=== PATIENT | male | born 1945 | race Caucasian/White ===

== ENCOUNTER 2021-11-18 07:55 | Day surgery (SDC) | payer MEDICARE, BC ==
[~2021-11-18] VITALS: Ht 177.8 cm; Wt 79.5 kg
[~2021-11-18 07:55] MED LIST: IBUP-1573 PO
[2021-11-18] MEDS ORDERED: fentaNYL/PF 50MCG/1 ML 2ML syringe ONE (08:07)
[2021-11-18] MEDS ORDERED: MIDAZolam 1 MG/ML 5ML VIAL ONE (08:08)
[2021-11-18] MEDS ORDERED: LIDOcaine Viscous 15ml cup ONE (08:08)
[2021-11-18] MEDS ORDERED: SIMV-45 PO (08:31)
[2021-11-18] MEDS ORDERED: AMLO-139 PO (08:31)
[2021-11-18] MEDS ORDERED: TRAZ150T78 PO (08:31)
[2021-11-18] MEDS ORDERED: SUCR1ORA15 PO (08:31)
[2021-11-18] MEDS ORDERED: ZOLP5TAB8 PO (08:31)
[2021-11-18] MEDS ORDERED: OXYC1TAB17 PO (08:31)
[2021-11-18 08:35] VITALS: BP 123/63
[2021-11-18 09:38] VITALS: BP 115/71
[2021-11-18 09:48] VITALS: BP 112/60
[2021-11-18 09:58] VITALS: BP 114/75
== END 2021-11-18 10:15 | disposition home or self-care (01) ==
LOC: GI LAB 07:55
PROVIDERS: ATTEND Internal Medicine Gastroenterology
DX: R13.10 Dysphagia, unspecified (principal); K29.50 Unspecified chronic gastritis without bleeding; K20.80 Other esophagitis without bleeding; I10 Essential (primary) hypertension; Z87.891 Personal history of nicotine dependence; Z72.89 Other problems related to lifestyle; Z79.899 Other long term (current) drug therapy
CPT/HCPCS: 43239; 88305; 88342; G0500; J2250; J3010; J7030; Z7512; 99152; A4620

== ENCOUNTER 2022-05-06 06:57 | Day surgery (SDC) | payer MEDICARE, BC ==
[~2022-05-06] VITALS: Ht 177.8 cm; Wt 72.0 kg
[~2022-05-06 06:57] MED LIST changes: +AMLO-139 PO; +OXYC1TAB17 PO; +SIMV-45 PO; +SUCR1ORA15 PO; +TRAZ150T78 PO; +ZOLP5TAB8 PO
[2022-05-06 07:29] VITALS: BP 113/72
[2022-05-06] MEDS ORDERED: normal saline 1000ml 1,000 ML IV PRN (07:40)
[2022-05-06] MEDS ORDERED: OMEP40CA21 PO (07:57)
[2022-05-06] MEDS ORDERED: ASPI-1071 PO (08:00)
[2022-05-06] MEDS ORDERED: LACT1CAP75 PO (08:00)
[2022-05-06] MEDS ORDERED: Vitamin B12 (08:00)
[2022-05-06] MEDS ORDERED: Vitamin D3 (08:00)
[2022-05-06 08:02] LABS: EOSINOPHILS # (AUTO) 0.1 X10'3 (0-0.9); EOSINOPHILS % (AUTO) 2.1 % (0-6); HEMATOCRIT 40.4 % (42.0-52.0); HEMOGLOBIN 13.4 g/dl (14.0-17.9); LYMPHOCYTES # (AUTO) 0.2 X10'3 (1.1-4.8); MEAN CORPUSCULAR HGB CONC 33.3 g/dL (33.0-36.5); MEAN CORPUSCULAR VOLUME 93.1 FL (78-98); MEAN PLATELET VOLUME 7.3 FL (7.4-10.4); MONOCYTES # (AUTO) 0.5 X10'3 (0-0.9); MONOCYTES % (AUTO) 10.8 % (2-12); NEUTROPHILS # (AUTO) 3.5 X10'3 (1.8-7.7); NEUTROPHILS % (AUTO) 82.1 % (42-75); PLATELET COUNT 172 X10'3 (140-440); RED BLOOD COUNT 4.34 X10'6 (4.70-6.10); RED CELL DISTRIBUTION WIDTH 17.2 % (11.5-14.5); WHITE BLOOD COUNT 4.3 X10'3 (4.5-11.0)
== END 2022-05-06 09:35 | disposition home or self-care (01) ==
LOC: SSTAY O 06:57
PROVIDERS: ATTEND Radiology Diagnostic Radiology
DX: K94.23 Gastrostomy malfunction (principal); Z53.8 Procedure and treatment not carried out for other reasons; Z79.01 Long term (current) use of anticoagulants; Z79.899 Other long term (current) drug therapy; E78.5 Hyperlipidemia, unspecified; K21.9 Gastro-esophageal reflux disease without esophagitis; Z98.890 Other specified postprocedural states; Z85.818 Personal history of malignant neoplasm of other sites of lip, oral cavity, and pharynx; Z79.82 Long term (current) use of aspirin
CPT/HCPCS: 85025; 85610; J7030; A6209; A6213; A6258; A6449